=== PATIENT | male | born 1975 | race Caucasian/White ===

== ENCOUNTER → 2019-10-10 | Outpatient (CLI) | payer OTHER ==
[~2019-10-10] MED LIST: GLUCOPHAGE; UN
== END ==
LOC: M.MRI 08:25
DX: M19.011 Primary osteoarthritis, right shoulder (principal); M75.21 Bicipital tendinitis, right shoulder

== ENCOUNTER 2021-05-19 20:24 | Emergency (ER) | payer OTHER ==
[~2021-05-19] VITALS: Ht 185.4 cm; Wt 113.4 kg
[2021-05-19] MEDS ORDERED: WELLBUTRIN XL150 MG PO (20:41)
[2021-05-19] MEDS ORDERED: AMARYL2 MG PO (20:41)
[2021-05-19] MEDS ORDERED: NORCO 10-325 T1 EACH PO (20:41)
[2021-05-19] MEDS ORDERED: JARDIANCE25 MG PO (20:42)
[2021-05-19] MEDS ORDERED: ROSUVASTATIN CA10 MG PO (20:42)
[2021-05-19] MEDS ORDERED: TRULICITY0.75 MG/0. (20:42)
[2021-05-19] MEDS ORDERED: ALPRAZOLAM XR3 MG PO (20:42)
[2021-05-19] MEDS ORDERED: PROTONIX40 M4 PO (20:43)
[2021-05-19 21:16] LABS: URINE BILIRUBIN NEGATIVE (Negative); URINE BLOOD NEGATIVE (Negative); URINE CLARITY CLEAR; URINE COLOR YELLOW; URINE GLUCOSE-RANDOM 3+ (Negative); URINE KETONES TRACE (Negative); URINE LEUKOCYTES-REFLEX NEGATIVE (Negative); URINE NITRITE-REFLEX NEGATIVE (Negative); URINE PROTEIN NEGATIVE (Negative); URINE UROBILINOGEN 0.2 E.U./dl (0.2-1.0)
[2021-05-19 21:38] LABS: ABSOLUTE EOSINOPHILS 0.1 thou/uL (0.0-0.7); ABSOLUTE LYMPHOCYTES 2.5 thou/uL (0.8-5.3); ABSOLUTE MONOCYTES 0.8 thou/uL (0.0-1.2); ABSOLUTE NEUTROPHILS 7.1 thou/uL (1.6-8.1); BASOPHILS 0.4 %; EOSINOPHILS 1.3 %; HEMATOCRIT 48.7 % (42.0-52.0); HEMOGLOBIN 16.9 gm/dL (14.0-18.0); LYMPHOCYTES 23.5 %; MCH 32.4 pg (26.0-34.0); MCHC 34.7 g/dL (28.0-37.0); MCV 93.5 fL (80.0-100.0); MONOCYTES 7.3 %; MPV 8.8 fl. (7.2-11.1); NUCLEATED RBCS 0 /100WBC; PLATELET COUNT* 144 thou/uL (150-400); POLYS 67.5 %; RBC 5.21 mil/uL (4.50-6.00); RDW-CV 13.5 % (10.5-14.5); WBC 10.5 thou/uL (4.0-11.0)
[2021-05-19 21:43] LABS: CALCIUM 9.4 mg/dL (8.5-10.1); CREATININE 1.1 mg/dL (0.6-1.3); POTASSIUM 4.5 mmol/L (3.5-5.1)
[2021-05-19 21:53] LABS: ALBUMIN 4.1 g/dL (3.4-5.0); MAGNESIUM 2.1 mg/dL (1.8-2.4); TOTAL BILIRUBIN 0.4 mg/dL (<0.1-1.0); TOTAL PROTEIN 7.7 g/dL (6.4-8.2)
[2021-05-19 23:36] VITALS: BP 119/78
--- NOTE | 2021-05-20 09:43 | EKG ---
[place] [address] ELECTROCARDIOGRAM REPORT Name: HILDA BOSS Room: [facility]#: [id number] Admission: 05/19/21 Attend Phys: Discharge: 05/19/21 Date of : 75 Date of Service: 05/19/212029 Report #: [id number] THIS REPORT FOR: //name// [facility] ED Test Date: 2021-05-19 Test Time: 20:30:15 Pat Name: HILDA BOSS Department: Room: Gender: Document Management Technician: AROLDO : 1975 Requested By: Yanely Ledbetter Order Number: [id number] MD: Markos Oconnell Measurements Intervals [place] Rate: 86 P: 49 VT: 181 QRS: 15 QRSD: 107 T: -2 QT: 357 QTc: 427 Interpretive Statements Sinus rhythm Inferior infarct, old Baseline wander in lead(s) V2 No previous ECG available for comparison Electronically Signed On 05-20-2021 9:43:00 CDT by Markos Oconnell [email or web address] <ELECTRONICALLY SIGNED> By: Markos Oconnell MD, [facility] 05/20/21 0943 2030 29 Markos Oconnell MD, [facility] /EPI
== END 2021-05-19 23:36 | disposition left against medical advice (07) ==
LOC: M.ERS 20:24
PROVIDERS: Nurse Practitioner Family
DX: I24.9 Acute ischemic heart disease, unspecified (principal); R07.89 Other chest pain; E11.9 Type 2 diabetes mellitus without complications; I10 Essential (primary) hypertension; F17.210 Nicotine dependence, cigarettes, uncomplicated; Z79.899 Other long term (current) drug therapy